=== PATIENT | male | born 1955 | race Hispanic/Latino ===

== ENCOUNTER 2018-07-23 06:13 | Day surgery (SDC) | payer OTHER ==
[2018-07-21 10:38] VITALS: BP 145/75
[2018-07-21 10:40] LABS: BASOPHILS % (AUTO) 0.6 % (0.0-5.0); EOSINOPHILS % (AUTO) 1.3 % (0.0-8.0); LYMPHOCYTES % (AUTO) 13.6 % (21.0-51.0); MEAN CORPUSCULAR HEMOGLOBIN 27.9 pg (27.0-33.0); MEAN CORPUSCULAR HGB CONC 32.8 g/dL (32.0-36.0); MEAN CORPUSCULAR VOLUME 85.1 fL (79-99); MONOCYTES % (AUTO) 7.2 % (3.0-13.0); NEUTROPHILS % (AUTO) 77.3 % (40.0-77.0); NUCLEATED RED BLOOD CELLS 0.1 % (0.0-0.19); PLATELET COUNT (AUTO) 199 K/uL (130-400); RED BLOOD CELL COUNT(AUTO) 5.29 MIL/uL (4.50-6.20); RED CELL DISTRIBUTION WIDTH 15.3 % (11.0-15.5); WHITE BLOOD COUNT (AUTO) 6.8 K/uL (4.8-10.8)
[2018-07-21 10:49] LABS: CREATININE 1.7 mg/dL (0.5-1.5); POTASSIUM 3.8 mmol/L (3.5-5.1)
[2018-07-21 10:53] LABS: INR 1.38 (0.85-1.15); PARTIAL THROMBOPLASTIN TIME 33.8 SEC (26.3-35.5); PROTHROMBIN TIME 14.4 SEC (9.6-11.6)
--- NOTE | 2018-07-22 10:53 | NUR ---
BMP, PT INR Dr Clarke reviewed labs drawn 07/21/18 CR 1.7, PT 14.4, INR 1.38, no new orders ok to proceed with procedure 07/23/18
[2018-07-23] VITALS (10 sets, daily range): BP systolic 136–150; BP diastolic 68–93
[~2018-07-23] VITALS: Ht 180.3 cm; Wt 160.8 kg
[~2018-07-23 06:13] MED LIST: AMIO200T5 PO; CHOL200059 PO; DIGOXIN PO; FURO40TA5 PO; GLIP5TAB11 PO; METOPROLOL PO; NIFE60TA81 PO; POTA20TA12 PO; RIVA20TA PO
[2018-07-23] MEDS ORDERED: PROPOFOL 10 MG/ML 20ML VIAL IV ONE ×2 (07:46→09:39)
[2018-07-23] MEDS ORDERED: METO100T14 PO (07:51)
[2018-07-23] MEDS ORDERED: SUCCINYLCHOLINE 200MG/10ML SYR ONE (08:03)
[2018-07-23] MEDS ORDERED: SODIUM CHLORIDE 0.9% 1000ML 1,000 ML IV ONE (08:17)
[2018-07-23] MEDS ORDERED: LIDOCAINE PF 2% 5ML ABBOJECT ONE (09:40)
[2018-07-23] MEDS ORDERED: PHENYLEPHRINE HCL 10 MG/ML 1ML VIAL IV ONE (09:40)
--- NOTE | 2018-07-23 10:34 | NUR ---
CARDIOVERSION CARDIOVERSION WITH ANESTHESIA PERFORMED AT BEDSIDE BY DR. STOCKTON. TIME OUT DONE -- AT 1000 START TIME--- AT 1001 SHOCK TIME X 2 DELIVERED AT 1003 BOTH - EXTERNAL SHOCK 360 JOULES - INTERNAL SHOCK 42JOULES FINISH PROCEDURE TIME--- 1004 RECOVERY STARTED AT 1004 PATIENT TOLERATED WELL WITH NO DISCOMFORTS. PATIENT CONVERTED, VS STABLE, BOTH DR. STOCKTON AND DR NATH OUT OF ROOM AT 1010. MD SPOKE TO FAMILY ABOUT OUTCOME OF PROCEDURE. PATIENT WILL BE DISCHARGE WHEN FULLY AWAKE AND STABLE
--- NOTE | 2018-07-23 11:25 | NUR ---
dc pt dc home via w[place], no distress noted. denies any pain or discomforts. accompanied by son
== END 2018-07-23 11:25 | disposition home or self-care (01) ==
LOC: DAH 06:13
PROVIDERS: ATTEND Internal Medicine Cardiovascular Disease
DX: I48.0 Paroxysmal atrial fibrillation (principal); Z68.42 Body mass index [BMI] 45.0-49.9, adult; Z79.899 Other long term (current) drug therapy; Z79.01 Long term (current) use of anticoagulants; E66.01 Morbid (severe) obesity due to excess calories; E11.9 Type 2 diabetes mellitus without complications
CPT/HCPCS: 36415; 80048; 82948; 85025; 85610; 85730; 92960; 93005 ×3; A4606; J0330; J2001; J2370; J2704 ×2; J7030; 99156

== ENCOUNTER 2021-01-09 05:45 | Day surgery (SDC) | payer OTHER ==
[2021-01-05 13:36] LABS: BASOPHILS % (AUTO) 0.3 % (0.0-5.0); EOSINOPHILS % (AUTO) 1.1 % (0.0-8.0); HEMATOCRIT 50.8 % (42-54); LYMPHOCYTES % (AUTO) 13.9 % (21.0-51.0); MEAN CORPUSCULAR HGB CONC 33.9 g/dL (32.0-36.0); MEAN CORPUSCULAR VOLUME 91.7 fL (79-99); MONOCYTES % (AUTO) 7.1 % (3.0-13.0); NEUTROPHILS % (AUTO) 76.8 % (40.0-77.0); PLATELET COUNT (AUTO) 190 K/uL (130-400); RED BLOOD CELL COUNT(AUTO) 5.54 MIL/uL (4.50-6.20); RED CELL DISTRIBUTION WIDTH 13.6 % (11.0-15.5); WHITE BLOOD COUNT (AUTO) 6.5 K/uL (4.8-10.8)
[2021-01-05 13:44] LABS: POTASSIUM 3.6 mmol/L (3.5-5.1)
[2021-01-05 13:46] LABS: INR 1.33 (0.85-1.15); PROTHROMBIN TIME 14.1 SEC (9.6-11.6)
[2021-01-05 13:47] LABS: PARTIAL THROMBOPLASTIN TIME 33.2 SEC (26.3-35.5)
[2021-01-06 09:53] VITALS: BP 111/76
[~2021-01-09] VITALS: Ht 182.9 cm; Wt 137.2 kg
[2021-01-09] VITALS (9 sets, daily range): BP systolic 106–158; BP diastolic 57–100
[~2021-01-09 05:45] MED LIST changes: -AMIO200T5 PO; -CHOL200059 PO; +DIGO125T71 PO; -DIGOXIN PO; +METO100T14 PO; -METOPROLOL PO; -NIFE60TA81 PO; +SPIR25TA6 PO
[2021-01-09] MEDS ORDERED: 0.9%NACL 1000ML 1,000 ML IV ONE (06:06)
[2021-01-09] MEDS ORDERED: HEPARIN 1,000 UNIT VIAL ONE (07:28)
[2021-01-09] MEDS ORDERED: LIDOCAINE HCL 400MG/20ML VIAL ONE (07:29)
[2021-01-09] MEDS ORDERED: MEPERIDINE-PF 25 MG/ML SYG ONE ×3 (07:51→10:44)
[2021-01-09] MEDS ORDERED: MIDAZOLAM HCL 1 MG/ML 2ML VIAL ONE ×3 (07:51→10:44)
[2021-01-09] MEDS ORDERED: 0.9%NACL 1000ML 1,000 ML IV SCH (08:00)
== END 2021-01-09 12:38 | disposition home or self-care (01) ==
LOC: DAH 05:45
PROVIDERS: ATTEND Internal Medicine Cardiovascular Disease
DX: I48.21 Permanent atrial fibrillation (principal); I42.8 Other cardiomyopathies; Z79.01 Long term (current) use of anticoagulants; Z79.899 Other long term (current) drug therapy; Z79.84 Long term (current) use of oral hypoglycemic drugs; Z98.890 Other specified postprocedural states
CPT/HCPCS: 36415; 80048; 82948 ×2; 85025; 85610; 85730; 93005; 93619; 93650; A4215; A4221; A4222; A4223; A4649 ×2; A4663; C1732; C1894; J1644; J2175 ×3; J2250 ×3; J3490; J7030 ×2; 99156; 99157